=== PATIENT | female | born 1995 | race Two or more races ===

== ENCOUNTER 2023-07-04 13:45 | Inpatient (IN) | payer OTHER ==
[~2023-07-04] VITALS: Ht 170.2 cm; Wt 68.0 kg
[~2023-07-04 13:45] MED LIST: ANTIBIOTICO PO; CEFADROXIL500 MG PO; DIALYVITE 800-1 EACH PO; KEFLEX500 MG PO; KETO10TA2 PO; PRENATAL 19 TA1 EACH PO
[2023-07-14] MEDS ORDERED: OXYTOCIN 500 ML IV SCH (06:30)
[2023-07-14] MEDS ORDERED: RINGERS SOLUTION,LACTATED 1,000 ML IV SCH (06:30)
[2023-07-14 06:35] LABS: PH,URINE 6.5 (5.0-8.0); URINE APPEARANCE Clear; URINE BILIRRUBIN Negative (NEGATIVE); URINE BLOOD Negative; URINE COLOR Yellow; URINE GLUCOSE Negative (NEGATIVE); URINE LEUKOCYTE Negative; URINE NITRATE Negative; URINE PROTEIN Negative (NEGATIVE); URINE UROBILINOGEN 0.2 E.U./dl
[2023-07-14 06:40] LABS: URINE BACTERIA 30.2 uL (0.0-1933); URINE EPITHELIAL CELLS 5.5 uL (0.0-38.8); URINE RBC 0.7 uL (0.0-20.8); URINE WBC 0.9 uL (0.0-23.2)
[2023-07-14 06:52] LABS: HEMATOCRIT 34.2 % (36.0-45.00); HEMOGLOBIN 11.5 g/dL (12.0-15.00); MEAN CELL VOLUME 84.9 fL (80.00-100.00); MEAN CORPUSCULAR HEMOGLOBIN 28.6 pg (27.00-32.0); MEAN CORPUSCULAR HGB CONC 33.6 g/dl (32.0-36.0); PLATELET COUNT 276 K/uL (150-450); RED BLOOD COUNT 4.03 M/uL (4.00-6.00); RED CELL DISTRIBUTION WIDTH 14.4 % (11.5-14.5)
[2023-07-14 07:12] LABS: INR 0.94; PARTIAL THROMBOPLASTIN TIME 26.9 SECONDS (22.0-34.0); PROTHROMBIN TIME 9.9 SECONDS (9.0-11.5)
[2023-07-14] MEDS ORDERED: PROMETHAZINE HCL 25 MG/ML AMPUL ONE (08:37)
[2023-07-14] MEDS ORDERED: MEPERIDINE HCL/PF 50 MG/ML VIAL IV STA (08:41)
[2023-07-14] MEDS ORDERED: PROMETHAZINE HCL 25 MG/ML AMPUL IV STA (08:41)
[2023-07-14] MEDS ORDERED: CHLORHEXIDINE GLUCONATE 120 ML BOTTLE TOP ONE ×2 (09:32→12:15)
[2023-07-14] MEDS ORDERED: OXYTOCIN 20 UNITS/1000ML RL PIGGYBAG IV ONE ×2 (09:33→12:15)
[2023-07-14] MEDS ORDERED: OxyCODONE HCL/APAP UD (PERCOCET) PO PRN (12:15)
[2023-07-14] MEDS ORDERED: LIDOCAINE HCL 1% 200MG/20ML VIAL IJ ONE (12:15)
[2023-07-14] MEDS ORDERED: ACETAMINOPHEN 325 MG TABLET PO PRN (12:15)
[2023-07-14] MEDS ORDERED: ERYTHROMYCIN BASE 1 GM TUBE OP ONE (12:15)
[2023-07-14] MEDS ORDERED: BENZOCAINE/MENTHOL 90 ML BOTTLE TOP SCH (17:00)
[2023-07-14] MEDS ORDERED: HYDROCORTISONE 2.5% 30 GM TUBE RECTAL SCH (17:00)
[2023-07-15 02:34] LABS: HEMATOCRIT 30.2 % (36.0-45.00); HEMOGLOBIN 10.1 g/dL (12.0-15.00); MEAN CELL VOLUME 83.2 fL (80.00-100.00); MEAN CORPUSCULAR HEMOGLOBIN 27.8 pg (27.00-32.0); MEAN CORPUSCULAR HGB CONC 33.4 g/dl (32.0-36.0); PLATELET COUNT 255 K/uL (150-450); RED BLOOD COUNT 3.63 M/uL (4.00-6.00); RED CELL DISTRIBUTION WIDTH 14.4 % (11.5-14.5)
== END 2023-07-16 12:20 | disposition home or self-care (01) | DRG 807 ==
LOC: OB/GYN 07-14 05:02 → LDR 07-14 05:02 → OB/GYN 07-14 14:23 → SURG 07-15 13:45 → OB/GYN 07-16 12:20
PROVIDERS: ADMIT Specialist; ATTEND Specialist
PROC: 10E0XZZ Delivery of Products of Conception, External Approach (ICD-10-PCS; principal; 2023-07-14)
PROC: 4A1HXCZ Monitoring of Products of Conception, Cardiac Rate, External Approach (ICD-10-PCS; 2023-07-14)
DX: O80 Encounter for full-term uncomplicated delivery (principal); Z37.0 Single live birth; Z3A.39 39 weeks gestation of pregnancy; Z20.822 Contact with and (suspected) exposure to COVID-19